=== PATIENT | female | born 1950 | race Caucasian/White ===

== ENCOUNTER 2019-11-04 08:24 | Emergency (ER) | payer MEDICARE, BC ==
[~2019-11-04] VITALS: Ht 175.3 cm; Wt 81.6 kg
--- NOTE | 2019-11-04 08:30 | NUR ---
PT BIBRA 879 FROM HOME C/O R ARM PAIN S/P SLIP AND FALL, DENIES HEAD INJURY KO, PT IS AAOX4, NOT IN RESPIRATORY DISTRESS, V/S STABLE, KEPT RESTED AND COMFORTABLE, WILL CONTINUE TO MONITOR.
[2019-11-04] MEDS ORDERED: CLON1TAB12 PO (09:12)
[2019-11-04] MEDS ORDERED: CLON0.5T4 PO (09:12)
[2019-11-04] MEDS ORDERED: QUET25TA PO (09:12)
[2019-11-04] MEDS ORDERED: ASPI-1169 PO (09:12)
[2019-11-04] MEDS ORDERED: LEVO75TA7 PO (09:12)
[2019-11-04] MEDS ORDERED: VENL37.510 PO (09:12)
[2019-11-04] MEDS ORDERED: BACL10TA PO (09:12)
[2019-11-04] MEDS ORDERED: LOVA20TA2 PO (09:12)
[2019-11-04] MEDS ORDERED: BIOT10006 PO (09:12)
[2019-11-04] MEDS ORDERED: UBID100C13 PO (09:12)
[2019-11-04] MEDS ORDERED: MORPHINE SULFATE INJ 2 MG/ML DISP.SYRIN IM ONE (09:30)
[2019-11-04] MEDS ORDERED: MORPHINE SULFATE INJ 4 MG/ML DISP.SYRIN ONE (09:39)
--- NOTE | 2019-11-04 12:18 | NUR ---
PT GIVEN DISC VSS FITTED FOR SLING PT. VERBALIZED UNDERSTANDING OF AFTERCARE INSTRUCTIONS.Patient discharged to home in stable condition. Written and verbal after care instructions given. Patient verbalizes understanding of instruction.
[2019-11-04 12:19] VITALS: BP 137/79
== END 2019-11-04 12:20 | disposition home or self-care (01) ==
LOC: ER 08:27
DX: S42.292A Other displaced fracture of upper end of left humerus, initial encounter for closed fracture (principal); Z79.82 Long term (current) use of aspirin; Z79.899 Other long term (current) drug therapy; W01.0XXA Fall on same level from slipping, tripping and stumbling without subsequent striking against object, initial encounter; Y93.89 Activity, other specified; Y92.89 Other specified places as the place of occurrence of the external cause; Y99.8 Other external cause status
CPT/HCPCS: 73030; 73200; 96372; 99284; J2270